=== PATIENT | female | born 1985 | race Hispanic/Latino ===

== ENCOUNTER 2018-04-10 01:02 | Emergency (ER) | payer OTHER ==
[2018-04-10 01:02] VITALS: BMI 37.3
[2018-04-10 01:14] VITALS: TEMP 98; O2SAT 98
--- NOTE | 2018-04-10 02:40 | C.PDOC ---
History Of Present Illness 32 year old female presents to the ED for evaluation of left knee pain which began around 2 days ago. Patient denies injury/trauma to the area, recent falls , or extremity numbness/weakness. Time Seen by Provider: 04/10/18 01:25 Chief Complaint (Nursing): Lower Extremity Problem/Injury History Per: Patient History/Exam Limitations: no limitations Onset/Duration Of Symptoms: Days (2) Current Symptoms Are (Timing): Still Present Additional History Per: Patient - Knee Description Of Injury: denies: Fell, Struck With Object, Struck Against Object, Twisted Past Medical History Reviewed: Historical Data, Nursing Documentation, Vital Signs Vital Signs: Last Vital Signs Temp 98 F 04/10/18 02:52 Pulse 72 04/10/18 02:52 Resp 20 04/10/18 02:52 BP 107/61 04/10/18 02:52 Pulse Ox 98 04/10/18 02:57 - Medical History PMH: Asthma Surgical History: No Surg Hx - [facility] Procedures EXTRACTION OF POC, LOW CERVICAL, OPEN APPROACH (09/13/15) OCCLUSION OF BILATERAL FALLOPIAN TUBES, OPEN APPROACH (09/13/15) RELEASE ABD SUBCU/FASCIA, OPEN APPROACH (09/13/15) Family History: States: Unknown Family Hx - Social History Hx Tobacco Use: No Hx Alcohol Use: No Hx Substance Use: No - Immunization History Hx Tetanus Toxoid Vaccination: No Hx Influenza Vaccination: Yes Hx Pneumococcal Vaccination: No Review Of Systems Musculoskeletal: Positive for: Other (left knee pain ) Physical Exam - Physical Exam Appears: Non-toxic, No Acute Distress Skin: Normal Color, Warm, Dry, No Ecchymosis (left knee ), No Other (erythema to left knee ) Extremity: Normal ROM, Tenderness (left knee, on palpation ), Capillary Refill ( less than 2 seconds ), No Deformity, No Swelling Neurological/Psych: Oriented x3, Normal Speech, Normal Cognition ED Course And Treatment O2 Sat by Pulse Oximetry: 98 (on RA) Pulse Ox Interpretation: Normal Progress Note: Left knee XR ordered and reviewed. Motrin PO given. Knee brace applied by CP and was checked by me. On re-examination, patient is resting comfortably, showing no signs of distress and reports an improvement in her pain. Patient is stable for discharge and is advised to follow up with orthopedic care within 1-2 days for further evaluation. Disposition - Disposition Referrals: Mina,Tristan, MD [Staff Provider] - Disposition: HOME/ ROUTINE Disposition Time: 02:38 Condition: STABLE Additional Instructions: Follow up with Orthopedist within 1-2 days. Return to ED if feel worse. 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 - Scribe Statement The provider has reviewed the documentation as recorded by the Scribe (Mary Roe) All medical record entries made by the Scribe were at my direction and personally dictated by me. I have reviewed the chart and agree that the record accurately reflects my personal performance of the history, physical exam, medical decision making, and the department course for this patient. I have also personally directed, reviewed, and agree with the discharge instructions and disposition.
[2018-04-10 02:54] VITALS: BP 107/61; PULSE 72; RESP 20
--- NOTE | 2018-04-10 08:39 | RAD ---
Date of service: 04/10/2018 PROCEDURE: Left Knee Radiographs. HISTORY: Pain. COMPARISON: None. FINDINGS: BONES: Bone alignment and mineralization are normal. There is no acute displaced fracture or bone destruction. JOINTS: Normal. JOINT EFFUSION: There is a small suprapatellar joint effusion. OTHER FINDINGS: None. IMPRESSION: No acute fracture or dislocation. Small suprapatellar joint effusion.
== END 2018-04-10 02:54 | disposition home or self-care (01) ==
LOC: C.ER 01:02
DX: M25.562 Pain in left knee (principal)